=== PATIENT | female | born 1970 | race African-American/Black ===

== ENCOUNTER 2017-09-22 13:11 | Emergency (ER) | payer BC, OTHER ==
[~2017-09-22] VITALS: Ht 162.6 cm; Wt 81.6 kg
[~2017-09-22 13:11] MED LIST: AMLODIPINE BESYL5 MG ORAL; ASPIRIN-LOW81 MG ORAL; GLUCOPHAGE1000 MG ORAL; HUMALOG100 UNIT/3 SUBQ; HYDROCHLOROTH12.5 M2 ORAL; HYDROCODON-ACE1 EA15 ORAL; KEFLEX500 MG ORAL; LANTUS SOL100 UNIT/1 SUBQ; LOSARTAN POTAS100 MG ORAL
[2017-09-22 13:32] VITALS: BP 137/85
[2017-09-22] MEDS ORDERED: Isovue-370 150ml vial INJ PRN (14:00)
--- NOTE | 2017-09-22 14:04 | Emergency Room Report ---
History of Present Illness General Chief Complaint: Abdominal Pain Source: Patient Present Illness HPI 47 y.o. F with hx of DMII(insulin dependant), HTN, here c/o one week of epigastric pain radiating to her lower back. rates the pain 10/10, continuous, not improving with advil, worsening with eating. pt has a hx of daily alcohol consumption, eats food with high fat content, on Metformin 1000mg bid, and basaglar 100U, 22U nightly. pt is noncompliant with DMII management. denies fever/chills, c/o one episode of nonbloody vomit, c/o daily nausea, denies diahrrea, constipation. pt does not check her BG daily. denies urinary complaints. denies CP, palpitation, sob. Allergies: Coded Allergies: No Known Allergies (Unverified , 02/16/16) Patient History Past Medical History: see triage record Past Surgical History: none Pertinent Family History: none Social History: Reports: smoking - cigarette smoker daily Now: No Immunizations: UTD Reviewed Nursing Documentation: PMH: Agreed; PSxH: Agreed Nursing Documentation-PMH Past Medical History: No History, Except For Hx Hypertension: Yes Hx Diabetes: Yes Review of Systems All Other Systems: negative except mentioned in HPI Physical Exam Vital Signs Date Time Temp Pulse Resp B/P (MAP) Pulse Ox O2 Delivery O2 Flow Rate FiO2 09/22/17 13:19 98.7 88 17 137/85 97 Room Air 98.8 Sp02 EP Interpretation: reviewed General Appearance: normal inspection, well appearing, mild distress Eyes: bilateral eye normal inspection, bilateral eye PERRL ENT: normal ENT inspection Neck: normal inspection, full range of motion, supple Respiratory: normal inspection, chest non-tender, lungs clear, normal breath sounds, no rhonchi, no respiratory distress, no retraction, no accessory muscle use Cardiovascular #1: normal inspection, normal peripheral pulses, regular rate, rhythm, no edema, no gallop, no JVD, no murmur, no rub Cardiovascular #2: 2+ radial (R), 2+ radial (L) Gastrointestinal: no bruit, non-distended, no pulsatile mass, guarding - epigastric, tenderness - epigastric, mass - epigastric, overweight Rectal: deferred Genitourinary: no CVA tenderness, deferred Musculoskeletal: normal inspection, back normal Neurologic: normal inspection, alert, oriented x3, responsive Psychiatric: normal inspection, judgement/insight normal, memory normal Skin: normal inspection, normal color, no rash, warm/dry, other - no skin changes secondary to possible pancreatitis Lymphatic: normal inspection, no adenopathy Medical Decision Making PA Attestation all pt's orders, diagnosis, tx plan were reviewed and discussed with my supervising physician Dr. Monaco Diagnostic Impression: Primary Impression: Pyelonephritis Additional Impressions: Diverticulosis Ovarian cyst ER Course 47 y.o. F with hx of DMII(insulin dependant), HTN, here c/o one week of epigastric pain radiating to her lower back. rates the pain 10/10, continuous, not improving with advil, worsening with eating. pt has a hx of daily alcohol consumption, eats food with high fat content, on Metformin 1000mg bid, and basaglar 100U, 22U nightly. pt is noncompliant with DMII management. denies fever/chills, c/o one episode of nonbloody vomit, c/o daily nausea, denies diahrrea, constipation. pt does not check her BG daily. denies urinary complaints.denies palpitaiton, sob, CP Ddx considered but are not limited to pancreatitis, cholelithaisis, abdominal hernia Vital signs: are WNL, pt. is afebrile H&PE are most consistent with [ ] ORDERS: Abd CT with contrast, CBC with diff, CMP, lipid panel, UA, lipase, B ED INTERVENTIONS: None required at this time. plt: 475, glucose: 145, AST 11, ALK phos: 33, LDL 129, UA leuk: 3+ , UA WBC 5-10 Lab Results Impression pylonephrits, EKG Diagnostic Results Rate: normal Rhythm: NSR ST Segments: no acute changes ASA given to the pt in ED: No Rhythm Strip Diag. Results Rhythm: NSR, no PVC's, no ectopy PA Scribe Text EKG reviewed by Dr Monaco. Yareli Dickson PA-C CT/MRI/US Diagnostic Results CT/MRI/US Diagnostic Results : Imaging Test Ordered: abdominal/pelvic CT no contrast Impression 1. Bilateral perinephric stranding and trace perinephric fluid worrisome for infection. No obstructive uropathy. 2. 2 cm crenated enhancing left ovarian cyst or follicle. Trace free fluid in the pelvis likely physiologic. 3. Normal appendix. 4. Moderate stool ascending and transverse colon. Rectosigmoid colonic diverticulosis. No bowel obstruction. Last Vital Signs Date Time Temp Pulse Resp B/P (MAP) Pulse Ox O2 Delivery O2 Flow Rate FiO2 09/22/17 13:32 98.8 88 17 137/85 97 Room Air 98.8 Status: improved Disposition: HOME, SELF-CARE Condition: Stable Scripts Omeprazole (OMEPRAZOLE) 20 Mg Capsule.dr 20 MG ORAL DAILY for 14 Days, #14 CAP Prov: Yareli Short P.A. 09/22/17 Ciprofloxacin* (CIPRO*) 500 Mg Tablet 500 MG PO BID for 10 Days, #20 TAB Prov: Yareli Short.A. 09/22/17 Patient Instructions: Acute Urinary Retention, Female, [id number], Diverticulosis, Ovarian Cyst, Urinary Tract Infection Additional Instructions: f/u pcp for GI referral for diverticulosis, take abx as directed for pylo and increase oral hydration. ED precuations given Yareli Short Sep 22, 2017 14:04
[2017-09-22 14:21] LABS: BASOPHILS % (AUTO) 1.5 % (0.0-2.0); HEMATOCRIT 41.1 % (37.0-47.0); MEAN CORPUSCULAR VOLUME 85 FL (80-99); MONOCYTES % (AUTO) 6.3 % (1.0-10.0); NEUTROPHILS % (AUTO) 56.1 % (45.0-75.0); PLATELET COUNT 475 K/UL (150-450); RED BLOOD COUNT 4.82 M/UL (4.20-5.40); RED CELL DISTRIBUTION WIDTH 11.7 % (11.6-14.8); WHITE BLOOD COUNT 7.6 K/UL (4.8-10.8)
[2017-09-22 14:36] LABS: ANION GAP 8 mmol/L (5-15); BLOOD UREA NITROGEN 12 mg/dL (7-18); CALCIUM 9.8 MG/DL (8.5-10.1); CARBON DIOXIDE 25 MMOL/L (21-32); CHLORIDE 103 MMOL/L (98-107); POTASSIUM 4.3 MMOL/L (3.5-5.1); SODIUM 136 MMOL/L (136-145)
[2017-09-22 14:41] LABS: ALANINE AMINOTRANSFERASE 19 U/L (12-78); ALBUMIN 3.7 G/DL (3.4-5.0); ALBUMIN/GLOBULIN RATIO 0.9 (1.0-2.7); ALKALINE PHOSPHATASE 33 U/L (46-116); ASPARTATE AMINO TRANSFERASE 11 U/L (15-37); BILIRUBIN,TOTAL 0.3 MG/DL (0.2-1.0); CHOLESTEROL 183 MG/DL (< 200); HDL CHOLESTEROL 45 MG/DL (40-60); TRIGLYCERIDES 44 MG/DL (30-150)
[2017-09-22 14:45] LABS: APPEARANCE,URINE SLIGHTLY CLOUDY; BILIRUBIN, URINE NEGATIVE (NEGATIVE); COLOR,URINE PALE YELLOW; GLUCOSE, URINE (UA) NEGATIVE (NEGATIVE); KETONES,URINE NEGATIVE (NEGATIVE); LEUKOCYTE ESTERASE ,URINE 3+ (NEGATIVE); NITRITE,URINE NEGATIVE (NEGATIVE); PH,URINE 8 (4.5-8.0); PROTEIN,URINE NEGATIVE (NEGATIVE); UROBILINOGEN,URINE NORMAL MG/DL (0.0-1.0)
--- NOTE | 2017-09-22 16:01 | Diagnostic Imaging Report ---
EXAM: CT Abdomen and Pelvis With Intravenous Contrast CLINICAL HISTORY: PAIN TECHNIQUE: Axial computed tomography images of the abdomen and pelvis with intravenous contrast during the arterial and portal venous phase of enhancement. CTDI is 113.56 mGy and DLP is 1747 mGy-cm. One or more of the following dose reduction techniques were used: automated exposure control, adjustment of the mA and/or kV according to patient size, use of iterative reconstruction technique. Coronal and sagittal reformatted images were created and reviewed. COMPARISON: CT abdomen and pelvis 02/16/16 FINDINGS: VASCULATURE: Aorta: Atherosclerotic vascular disease. No abdominal aortic aneurysm. No dissection. Celiac trunk and mesenteric arteries: No acute findings. No occlusion or significant stenosis. Renal arteries: No acute findings. No occlusion or significant stenosis. Iliac arteries: No acute findings. No occlusion or significant stenosis. Lung bases: Unremarkable. No mass. No consolidation. ABDOMEN: Liver: Unremarkable. No mass. Gallbladder and bile ducts: Unremarkable. No calcified stones. No ductal dilation. Pancreas: Unremarkable. No ductal dilation. No mass. Spleen: Unremarkable. No splenomegaly. Adrenals: Unremarkable. No mass. Kidneys and ureters: Bilateral perinephric stranding and trace perinephric fluid worrisome for infection. No obstructive uropathy. Tiny low-density lesion in the left kidney, too small to characterize. Stomach and bowel: Moderate stool ascending and transverse colon. Rectosigmoid colonic diverticulosis. No bowel obstruction. No mucosal thickening. PELVIS: Appendix: Normal appendix. Bladder: Mild thickening of the urinary bladder, correlate for cystitis. Reproductive: Unremarkable as visualized. ABDOMEN and PELVIS: Intraperitoneal space: 2 cm crenated enhancing left ovarian cyst or follicle. Trace free fluid in the pelvis likely physiologic. No free air. Bones/joints: Mild degenerative changes lower thoracic spine. No acute fracture. No dislocation. Soft tissues: Small fat-containing umbilical hernia. Lymph nodes: Small mesenteric lymph nodes. IMPRESSION: 1. Bilateral perinephric stranding and trace perinephric fluid worrisome for infection. No obstructive uropathy. 2. 2 cm crenated enhancing left ovarian cyst or follicle. Trace free fluid in the pelvis likely physiologic. 3. Normal appendix. 4. Moderate stool ascending and transverse colon. Rectosigmoid colonic diverticulosis. No bowel obstruction.
[2017-09-22] MEDS ORDERED: OMEPRAZOLE20 M2 ORAL (16:13)
[2017-09-22] MEDS ORDERED: CIPRO500 MG PO (16:13)
--- NOTE | 2017-09-24 10:13 | Cardiology Report ---
APPROVED REPORT EKG Measurement Heart [id number] Normal sinus rhythm Possible Left atrial enlargement Borderline ECG
== END 2017-09-22 16:45 | disposition home or self-care (01) ==
LOC: EMR 14:00
DX: N12 Tubulo-interstitial nephritis, not specified as acute or chronic (principal); K57.30 Diverticulosis of large intestine without perforation or abscess without bleeding; N83.202 Unspecified ovarian cyst, left side
CPT/HCPCS: 36415; 74177; 80053; 80061; 81001; 82962; 83690; 85025; 93005; 99284; Q9967

== ENCOUNTER 2018-03-04 02:30 | Emergency (ER) | payer BC, OTHER ==
[~2018-03-04] VITALS: Ht 167.6 cm; Wt 81.6 kg
[~2018-03-04 02:30] MED LIST changes: +CIPRO500 MG PO; +OMEPRAZOLE20 M2 ORAL
[2018-03-04 02:55] VITALS: BP 152/93
[2018-03-04] MEDS ORDERED: Ketorolac 30mg Inj IV ONE (03:30)
[2018-03-04 04:00] LABS: APPEARANCE,URINE CLEAR; BILIRUBIN, URINE NEGATIVE (NEGATIVE); COLOR,URINE PALE YELLOW; GLUCOSE, URINE (UA) 1+ (NEGATIVE); KETONES,URINE NEGATIVE (NEGATIVE); LEUKOCYTE ESTERASE ,URINE 1+ (NEGATIVE); NITRITE,URINE NEGATIVE (NEGATIVE); PH,URINE 5 (4.5-8.0); PROTEIN,URINE NEGATIVE (NEGATIVE); UROBILINOGEN,URINE NORMAL MG/DL (0.0-1.0)
[2018-03-04 04:02] LABS: BASOPHILS % (AUTO) 1.8 % (0.0-2.0); EOSINOPHILS % (AUTO) 1.5 % (0.0-3.0); HEMATOCRIT 41.5 % (37.0-47.0); HEMOGLOBIN 13.3 G/DL (12.0-16.0); LYMPHOCYTES % (AUTO) 35.4 % (20.0-45.0); MEAN CORPUSCULAR VOLUME 83 FL (80-99); MONOCYTES % (AUTO) 4.9 % (1.0-10.0); NEUTROPHILS % (AUTO) 56.4 % (45.0-75.0); PLATELET COUNT 472 K/UL (150-450); RED BLOOD COUNT 5.01 M/UL (4.20-5.40); RED CELL DISTRIBUTION WIDTH 11.3 % (11.6-14.8); WHITE BLOOD COUNT 7.2 K/UL (4.8-10.8)
[2018-03-04 04:12] LABS: ANION GAP 10 mmol/L (5-15); BLOOD UREA NITROGEN 12 mg/dL (7-18); CALCIUM 8.9 MG/DL (8.5-10.1); CARBON DIOXIDE 26 MMOL/L (21-32); CHLORIDE 99 MMOL/L (98-107); CREATININE 0.7 MG/DL (0.55-1.30); POTASSIUM 4.1 MMOL/L (3.5-5.1); SODIUM 135 MMOL/L (136-145)
[2018-03-04 04:16] LABS: ALANINE AMINOTRANSFERASE 21 U/L (12-78); ALBUMIN 3.7 G/DL (3.4-5.0); ALBUMIN/GLOBULIN RATIO 0.9 (1.0-2.7); ALKALINE PHOSPHATASE 50 U/L (46-116); ASPARTATE AMINO TRANSFERASE 21 U/L (15-37); BILIRUBIN,TOTAL 0.2 MG/DL (0.2-1.0)
[2018-03-04 04:46] VITALS: BP 146/91
--- NOTE | 2018-03-04 04:54 | Emergency Room Report ---
History of Present Illness General Chief Complaint: Abdominal Pain Source: Patient Present Illness HPI Patient presents with several days of right flank pain. When she feels this way she usually has a kidney or bladder infection. She denies any dysuria or discharge. She denies any fevers or chills. She gets some relief with Aleve. Poorly tolerates Tylenol. No trauma. Pain rated 7/10, worse with moving and twisting torso. She has repetitive movements at her work. The patient's moved her bowels this morning and normal. She denies any vomiting or diarrhea. Patient is diabetic and takes metformin and insulin. Her control is not been very good as she believes it could've been. No rashes, headache, fatigue, cough, chest pain, URI sy, numbness. Seen September this year with Pyelonephritis. CT done: IMPRESSION: 1. Bilateral perinephric stranding and trace perinephric fluid worrisome for infection. No obstructive uropathy. 2. 2 cm crenated enhancing left ovarian cyst or follicle. Trace free fluid in the pelvis likely physiologic. 3. Normal appendix. 4. Moderate stool ascending and transverse colon. Rectosigmoid colonic diverticulosis. No bowel obstruction. Allergies: Coded Allergies: No Known Allergies (Unverified , 02/16/16) Patient History Past Medical History: see triage record, old chart reviewed Social History: Reports: smoking Social History Narrative works at [employer] Last Menstrual Period: last month Now: No Reviewed Nursing Documentation: PMH: Agreed; PSxH: Agreed Nursing Documentation-PMH Hx Hypertension: Yes Hx Diabetes: Yes Review of Systems All Other Systems: negative except mentioned in HPI Physical Exam Vital Signs Date Time Temp Pulse Resp B/P (MAP) Pulse Ox O2 Delivery O2 Flow Rate FiO2 03/04/18 02:49 98.1 85 16 152/93 100 Room Air Sp02 EP Interpretation: reviewed, normal General Appearance: well appearing, no apparent distress, GCS 15 Head: normocephalic Eyes: bilateral eye normal inspection, bilateral eye PERRL ENT: moist mucus membranes Neck: supple Respiratory: lungs clear, normal breath sounds Cardiovascular #1: regular rate, rhythm Cardiovascular #2: 2+ radial (R) Gastrointestinal: normal inspection, normal bowel sounds, non tender, no mass, non-distended Genitourinary: CVA tenderness (R) - minimal Musculoskeletal: digits/nails normal, gait/station normal, normal range of motion, tender - R paraspinous area Neurologic: alert, oriented x3, grossly normal Psychiatric: mood/affect normal Skin: normal inspection, warm/dry Medical Decision Making Diagnostic Impression: Primary Impression: Flank pain Additional Impression: Hyperglycemia ER Course Patient presents with R flank pain for several days. DDX: renal stone, pyelonephritis, muscle strain/spasm, lumbar strain amongst others. Evaluation with labs including UA. Treatment with Toradol and repeat exams. Labs with normal WBC, H/H. CMP with elevated glucose. UA clear. Patient improved with treatment. Discussed findings and need for outpatient follow up with close observation. No evidence of medical emergency at this time. Also discussed glucose control. Patient stable for outpatient observation and treatment. Laboratory Tests Test 03/04/18 03:53 White Blood Count 7.2 K/UL (4.8-10.8) Red Blood Count 5.01 M/UL (4.20-5.40) Hemoglobin 13.3 G/DL (12.0-16.0) Hematocrit 41.5 % (37.0-47.0) Mean Corpuscular Volume 83 FL (80-99) Mean Corpuscular Hemoglobin 26.5 PG (27.0-31.0) L Mean Corpuscular Hemoglobin Concent 32.0 G/DL (32.0-36.0) Red Cell Distribution Width 11.3 % (11.6-14.8) L Platelet Count 472 K/UL (150-450) H Mean Platelet Volume 5.5 FL (6.5-10.1) L Neutrophils (%) (Auto) 56.4 % (45.0-75.0) Lymphocytes (%) (Auto) 35.4 % (20.0-45.0) Monocytes (%) (Auto) 4.9 % (1.0-10.0) Eosinophils (%) (Auto) 1.5 % (0.0-3.0) Basophils (%) (Auto) 1.8 % (0.0-2.0) Urine Color Pale yellow Urine Appearance Clear Urine pH 5 (4.5-8.0) Urine Specific [place] 1.010 (1.005-1.035) Urine Protein Negative (NEGATIVE) Urine Glucose (UA) 1+ (NEGATIVE) H Urine Ketones Negative (NEGATIVE) Urine Blood Negative (NEGATIVE) Urine Nitrite Negative (NEGATIVE) Urine Bilirubin Negative (NEGATIVE) Urine Urobilinogen Normal MG/DL (0.0-1.0) Urine Leukocyte Esterase 1+ (NEGATIVE) H Urine RBC 0-2 /HPF (0 - 2) Urine WBC 2-4 /HPF (0 - 2) Urine Squamous Epithelial Cells Few /LPF (NONE/OCC) Urine Bacteria None /HPF (NONE) Sodium Level 135 MMOL/L (136-145) L Potassium Level 4.1 MMOL/L (3.5-5.1) Chloride Level 99 MMOL/L (98-107) Carbon Dioxide Level 26 MMOL/L (21-32) Anion Gap 10 mmol/L (5-15) Blood Urea Nitrogen 12 mg/dL (7-18) Creatinine 0.7 MG/DL (0.55-1.30) Estimate Glomerular Filtration Rate > 60 mL/min (>60) Glucose Level 204 MG/DL (74-106) H Calcium Level 8.9 MG/DL (8.5-10.1) Total Bilirubin 0.2 MG/DL (0.2-1.0) Aspartate Amino Transferase (AST) 21 U/L (15-37) Alanine Aminotransferase (ALT) 21 U/L (12-78) Alkaline Phosphatase 50 U/L (46-116) Total Protein 7.9 G/DL (6.4-8.2) Albumin 3.7 G/DL (3.4-5.0) Globulin 4.2 g/dL Albumin/Globulin Ratio 0.9 (1.0-2.7) L Lipase 191 U/L (73-393) Last Vital Signs Date Time Temp Pulse Resp B/P (MAP) Pulse Ox O2 Delivery O2 Flow Rate FiO2 03/04/18 05:08 98.1 61 18 146/91 100 Room Air Status: improved Disposition: HOME, SELF-CARE Condition: Improved Scripts Naproxen* (NAPROXEN*) 375 Mg Tablet. 375 MG ORAL TID PRN for For Pain, #20 TAB Prov: Maikel Sunshine MD 03/04/18 Referrals: NON PHYSICIAN (PCP) Maikel Sunshine MD Mar 04, 2018 04:54
[2018-03-04] MEDS ORDERED: NAPROXEN375 M2 ORAL (04:57)
[2018-03-04 05:08] VITALS: BP 146/91
== END 2018-03-04 05:10 | disposition home or self-care (01) ==
LOC: EMR 03:14
DX: R10.9 Unspecified abdominal pain (principal); E11.65 Type 2 diabetes mellitus with hyperglycemia; I10 Essential (primary) hypertension; Z72.0 Tobacco use
CPT/HCPCS: 36415; 80053; 81003; 82962; 83690; 85025; 96361; 96374; 96375; 99284; J1885; J2405

== ENCOUNTER 2018-04-22 22:36 | Emergency (ER) | payer BC, OTHER ==
[~2018-04-22] VITALS: Ht 162.6 cm; Wt 79.4 kg
[~2018-04-22 22:36] MED LIST changes: +NAPROXEN375 M2 ORAL
[2018-04-22 23:10] VITALS: BP 141/82
--- NOTE | 2018-04-22 23:10 | NUR ---
ED Nurse Note: Pt arrived ED from home, c/o left abdominal pain today. 07/17. Pt is A/O X4. Vital signs stable at this time. Waiting for orders.
--- NOTE | 2018-04-22 23:35 | Emergency Room Report ---
History of Present Illness General Chief Complaint: Abdominal Pain Source: Patient Present Illness HPI Patient presents with complaints of mid epigastric mid abdominal pain off and on over the past several weeks however more frequently recently She had increased nausea denies any chest pain denies any diarrhea denies any fevers or chills Symptoms appear to improve somewhat after avoiding lactose however patient had to leave work early today given the cramps Patient does also have history of diabetes did not have a chance to check her glucose today Denies any neck pain or photophobia denies any recent travel Denies any trauma Allergies: Coded Allergies: No Known Allergies (Unverified , 04/22/18) Patient History Past Medical History: see triage record Pertinent Family History: none Last Menstrual Period: [id number] Now: No Reviewed Nursing Documentation: PMH: Agreed; PSxH: Agreed Nursing Documentation-PMH Hx Hypertension: Yes Hx Diabetes: Yes Review of Systems All Other Systems: negative except mentioned in HPI Physical Exam Vital Signs Date Time Temp Pulse Resp B/P (MAP) Pulse Ox O2 Delivery O2 Flow Rate FiO2 04/22/18 22:51 98.2 90 16 144/83 96 Sp02 EP Interpretation: reviewed, normal General Appearance: well appearing, no apparent distress Head: normocephalic, atraumatic Eyes: bilateral eye PERRL, bilateral eye EOMI ENT: hearing grossly normal, normal pharynx, TMs + canals normal, uvula midline Neck: full range of motion, supple, no meningismus, no bony tend Respiratory: lungs clear, normal breath sounds, no rhonchi, no respiratory distress, no retraction, no accessory muscle use Cardiovascular #1: normal peripheral pulses, regular rate, rhythm, no edema, no gallop, no JVD, no murmur Gastrointestinal: normal bowel sounds, non tender, soft, no mass, no organomegaly, non-distended, no guarding, no hernia, no pulsatile mass, no rebound Genitourinary: no CVA tenderness Musculoskeletal: normal inspection Neurologic: oriented x3, responsive, customer support executive III-XII nml as tested, motor strength/ tone normal, sensory intact Psychiatric: mood/affect normal Skin: normal color, no rash, warm/dry, palpation normal Lymphatic: normal inspection, no adenopathy Medical Decision Making Diagnostic Impression: Primary Impression: Abdominal pain ER Course With the patient's history and examination, multiple differentials considered, including but not limited to , ectopic , ovarian torsion, gastritis, cholecystitis, pancreatitis, appendicitis Patient has a benign repeat abdominal exam continues to rest comfortably without acute distress I did not feel acute Emergency blood work or imaging was required at this time given her exam Accu-Chek was elevated at over 250 patient will have close outpatient follow-up And discussed regarding the need for close Accu-Cheks Last Vital Signs Date Time Temp Pulse Resp B/P (MAP) Pulse Ox O2 Delivery O2 Flow Rate FiO2 04/22/18 22:51 98.2 90 16 144/83 96 Status: improved Disposition: HOME, SELF-CARE Condition: Improved Scripts Famotidine (PEPCID AC) 20 Mg Tablet 20 MG PO DAILY, #12 TAB Prov: Tan Pace DO 04/22/18 Ondansetron (Zofran) 4 Mg Tablet 4 MG ORAL Q8H PRN for Nausea & Vomiting, #10 TAB 0 Refills Prov: Tan Pace DO 04/22/18 Additional Instructions: Patient is provided with the discharge instructions notified to follow up with primary doctor in the next 2-3 days otherwise return to the er with any worsening symptoms. Please note that this report is being documented using Zing technology. This can lead to erroneous entry secondary to incorrect interpretation by the dictating instrument. Tan Pace DO Apr 22, 2018 23:35
--- NOTE | 2018-04-22 23:55 | NUR ---
ED Nurse Note: Meds given as ordered.
--- NOTE | 2018-04-22 23:55 | NUR ---
ED Nurse Note: Meds given as ordered.
[2018-04-22] MEDS ORDERED: PEPCID AC20 M2 PO (23:59)
[2018-04-22] MEDS ORDERED: ZOFRAN4 MG ORAL (23:59)
[2018-04-23 00:04] VITALS: BP 141/82
--- NOTE | 2018-04-23 00:04 | NUR ---
ED Nurse Note: Pt has seen by Dr. Pace, orders carried out. D/c instruction given to Pt and verbalized understanding.ID band removed. Pt d/c from ED with steady gait.
== END 2018-04-23 00:04 | disposition home or self-care (01) ==
LOC: EMR 22:49
DX: R10.13 Epigastric pain (principal); E11.9 Type 2 diabetes mellitus without complications; I10 Essential (primary) hypertension
CPT/HCPCS: 82962; 99282